=== PATIENT | female | born 1990 | race Caucasian/White ===

== ENCOUNTER 2020-12-20 11:01 | Emergency (ER) | payer OTHER ==
[~2020-12-20] VITALS: Ht 162.6 cm; Wt 61.2 kg
[~2020-12-20 11:01] MED LIST: BIRTH CONTROL; IBUPROFEN 800800 M1 PO; PROTONIX40 M4 PO; ROBAXIN 750 MG750 M1 PO
[2020-12-20] MEDS ORDERED: AMBIEN5 MG PO (11:17)
[2020-12-20] MEDS ORDERED: XANAX 0.5 MG0.5 M1 PO (11:17)
[2020-12-20] MEDS ORDERED: TAPAZOLE10 MG PO (11:17)
[2020-12-20 11:25] LABS: URINE BILIRUBIN NEGATIVE (Negative); URINE BLOOD NEGATIVE (Negative); URINE CLARITY CLEAR; URINE COLOR DARK YELLOW; URINE GLUCOSE-RANDOM NEGATIVE (Negative); URINE KETONES NEGATIVE (Negative); URINE LEUKOCYTES-REFLEX NEGATIVE (Negative); URINE NITRITE-REFLEX NEGATIVE (Negative); URINE PROTEIN NEGATIVE (Negative); URINE SPECIFIC GRAVITY >= 1.030 (1.005-1.030); URINE UROBILINOGEN 0.2 E.U./dl (0.2-1.0)
[2020-12-20 11:30] LABS: ABSOLUTE LYMPHOCYTES 1.6 thou/uL (0.8-5.3); ABSOLUTE MONOCYTES 0.4 thou/uL (0.0-1.2); ABSOLUTE NEUTROPHILS 4.1 thou/uL (1.6-8.1); BASOPHILS 0.8 %; EOSINOPHILS 0.6 %; HEMATOCRIT 38.2 % (37.0-47.0); HEMOGLOBIN 12.7 gm/dL (12.0-15.0); LYMPHOCYTES 25.9 %; MCH 28.5 pg (26.0-34.0); MCHC 33.2 g/dL (28.0-37.0); MCV 85.8 fL (80.0-100.0); MONOCYTES 5.9 %; MPV 7.6 fl. (7.2-11.1); NUCLEATED RBCS 0 /100WBC; PLATELET COUNT* 240 thou/uL (150-400); POLYS 66.8 %; RBC 4.45 mil/uL (4.20-5.00); RDW-CV 15.5 % (10.5-14.5); WBC 6.1 thou/uL (4.0-11.0)
[2020-12-20 11:48] LABS: ALBUMIN 3.6 g/dL (3.4-5.0); CALCIUM 8.2 mg/dL (8.5-10.1); CREATININE 0.8 mg/dL (0.6-1.3); POTASSIUM 3.8 mmol/L (3.5-5.1); TOTAL BILIRUBIN 0.8 mg/dL (<0.1-1.0); TOTAL PROTEIN 7.5 g/dL (6.4-8.2)
[2020-12-20] MEDS ORDERED: ONDANSETRON ODT4 MG PO (12:40)
[2020-12-20] MEDS ORDERED: NORCO5 PO (12:40)
[2020-12-20] MEDS ORDERED: PEPCID20 MG PO (12:40)
[2020-12-20] MEDS ORDERED: VISTARIL 25 MG25 M1 PO (12:40)
[2020-12-20 12:56] VITALS: BP 113/77
== END 2020-12-20 12:56 | disposition home or self-care (01) ==
LOC: M.ERS 11:01
PROVIDERS: Physician Assistant
DX: R10.13 Epigastric pain (principal); F43.9 Reaction to severe stress, unspecified; Z87.442 Personal history of urinary calculi; E05.90 Thyrotoxicosis, unspecified without thyrotoxic crisis or storm; Z98.82 Breast implant status; Z79.899 Other long term (current) drug therapy; Z88.0 Allergy status to penicillin

== ENCOUNTER 2021-04-28 11:08 | Emergency (ER) | payer OTHER ==
[~2021-04-28] VITALS: Ht 162.6 cm; Wt 59.0 kg
[~2021-04-28 11:08] MED LIST changes: +AMBIEN5 MG PO; +NORCO5 PO; +ONDANSETRON ODT4 MG PO; +PEPCID20 MG PO; +TAPAZOLE10 MG PO; +VISTARIL 25 MG25 M1 PO; +XANAX 0.5 MG0.5 M1 PO
[2021-04-28] MEDS ORDERED: ZOLOFT100 MG PO (11:25)
[2021-04-28 12:49] LABS: ABSOLUTE EOSINOPHILS 0.1 thou/uL (0.0-0.7); ABSOLUTE LYMPHOCYTES 1.2 thou/uL (0.8-5.3); ABSOLUTE MONOCYTES 0.6 thou/uL (0.0-1.2); ABSOLUTE NEUTROPHILS 3.1 thou/uL (1.6-8.1); BASOPHILS 0.5 %; EOSINOPHILS 2.6 %; HEMATOCRIT 34.8 % (37.0-47.0); HEMOGLOBIN 11.6 gm/dL (12.0-15.0); LYMPHOCYTES 23.8 %; MCH 27.8 pg (26.0-34.0); MCHC 33.3 g/dL (28.0-37.0); MCV 83.4 fL (80.0-100.0); MONOCYTES 11.8 %; MPV 7.5 fl. (7.2-11.1); NUCLEATED RBCS 0 /100WBC; PLATELET COUNT* 230 thou/uL (150-400); POLYS 61.3 %; RBC 4.17 mil/uL (4.20-5.00); RDW-CV 15.4 % (10.5-14.5); WBC 5.1 thou/uL (4.0-11.0)
[2021-04-28 13:07] LABS: CALCIUM 8.3 mg/dL (8.5-10.1); CREATININE 0.8 mg/dL (0.6-1.3); POTASSIUM 4.3 mmol/L (3.5-5.1)
[2021-04-28 13:12] LABS: ALBUMIN 3.4 g/dL (3.4-5.0); TOTAL BILIRUBIN 0.3 mg/dL (<0.1-1.0); TOTAL PROTEIN 7.2 g/dL (6.4-8.2)
[2021-04-28] MEDS ORDERED: VENTOLIN HFA 1818 GM INH (13:57)
[2021-04-28] MEDS ORDERED: PREDNISONE 20 M20 MG PO (13:57)
[2021-04-28] MEDS ORDERED: NAPROSYN500 MG PO (13:57)
[2021-04-28 14:04] VITALS: BP 125/70
--- NOTE | 2021-04-29 14:06 | EKG ---
[place] [address] ELECTROCARDIOGRAM REPORT Name: VANCE,LOS Carballo Room: [facility]#: [id number] Admission: 04/28/21 Attend Phys: Discharge: 04/28/21 Date of : 86 Date of Service: 04/28/21 1222 Report #: [id number] THIS REPORT FOR: //name// [facility] ED Test Date: 2021-04-28 Test Time: 12:22:14 Pat Name: LOS VANCE Department: Room: Gender: F Veneer D[employer] Feeder: MILAN : 1990 Requested By: Zara Schwartz Order Number: [id number] : Max Moss Measurements Intervals [place] Rate: 55 P: 175 MT: 130 QRS: 113 QRSD: 84 T: 160 QT: 420 QTc: 402 Interpretive Statements Right and left arm electrode reversal suspected, interpretation assumes no reversal Sinus or ectopic atrial rhythm Possible lateral infarct, age indeterminate No previous ECG available for comparison Electronically Signed On 04-29-2021 14:06:08 CDT by Max Moss [email or web address] <ELECTRONICALLY SIGNED> By: Max Moss MD, [facility] 04/29/21 1406 1222 1222 Max Moss MD, [facility] /EPI
== END 2021-04-28 14:04 | disposition home or self-care (01) ==
LOC: M.ERS 11:08
PROVIDERS: Nurse Practitioner Family
DX: R07.89 Other chest pain (principal); M54.6 Pain in thoracic spine; B34.9 Viral infection, unspecified; Z88.0 Allergy status to penicillin; Z79.899 Other long term (current) drug therapy; Z87.442 Personal history of urinary calculi

== ENCOUNTER → 2021-05-21 | Outpatient (CLI) | payer OTHER ==
[~2021-05-21] MED LIST changes: +NAPROSYN500 MG PO; +PREDNISONE 20 M20 MG PO; +VENTOLIN HFA 1818 GM INH; +ZOLOFT100 MG PO
== END ==
LOC: M.ULTRA 06:54
PROVIDERS: ATTEND Nurse Practitioner Family
DX: R63.5 Abnormal weight gain (principal); Z90.49 Acquired absence of other specified parts of digestive tract